=== PATIENT | male | born 1980 | race Caucasian/White ===

== ENCOUNTER 2017-10-25 15:32 | Emergency (ER) | payer BC ==
[2017-10-25] MEDS ORDERED: Sodium Chloride 0.9% 1,000 ML IV ONE (15:46)
[2017-10-25] MEDS ORDERED: Ketorolac 30 MG/ML SDV IVPUSH ONE (15:46)
[2017-10-25] MEDS ORDERED: Ondansetron 4 MG/2 ML SDV IVPUSH ONE (15:46)
--- NOTE | 2017-10-25 15:53 | EDM.PDOC ---
ED HPI GENERAL MEDICAL PROBLEM - General Chief Complaint: Abdominal Pain Stated Complaint: ABDOMINAL PAIN Time Seen by Provider: 10/25/17 15:46 Source of Information: Reports: Patient History Limitations: Reports: No Limitations - History of Present Illness INITIAL COMMENTS - FREE TEXT/NARRATIVE: HISTORY AND PHYSICAL: History of present illness: Patient is a 37-year-old male who presents to the emergency room with complaints of left upper quadrant/epigastric pain that radiates to the left flank. He states he had does have a decreased appetite and has not been eating as well as normal. States that nothing improves the pain and nothing makes it worse. Denies any vomiting, diarrhea or constipation. Denies any chest pain, shortness breath, fever or chills. Denies any dysuria or hematuria. Denies any alcohol or drug abuse. Review of systems: As per history of present illness and below otherwise all systems reviewed and negative. Past medical history: As per history of present illness and as reviewed below otherwise noncontributory. Surgical history: As per history of present illness and as reviewed below otherwise noncontributory. Social history: No reported history of drug or alcohol abuse. Family history: As per history of present illness and as reviewed below otherwise noncontributory. Physical exam: Gen.: Nontoxic-appearing 37-year-old male. Alert and oriented. Appears in no acute distress. HEENT: Atraumatic, normocephalic, pupils reactive, negative for conjunctival pallor or scleral icterus, mucous membranes moist, throat clear, neck supple, nontender, trachea midline. Lungs: Clear to auscultation, breath sounds equal bilaterally, chest nontender. Heart: S1S2, regular, negative for clicks, rubs, or JVD. Abdomen: Soft, obese, nondistended, mild tenderness to the epigastric area and left upper quadrant. Negative for masses or hepatosplenomegaly. Negative for costovertebral tenderness. Pelvis: Stable nontender. Genitourinary: Deferred. Rectal: Deferred. Extremities: Atraumatic, negative for cords or calf pain. Neurovascular unremarkable. Neuro: Awake, alert, oriented. Cranial nerves II through XII unremarkable. Cerebellum unremarkable. Motor and sensory unremarkable throughout. Exam nonfocal. Patient declines Toradol and Zofran at this time, stating "I'm okay". Inform the patient to let staff notes he did change his mind and wanted something for pain/nausea. Will do lab work and a CT of the abdomen pelvis. Patient is agreeable to plan of care. Labs and CT results were discussed with the patient. CT shows fatty infiltration of the liver along with elevated LFTs and his lab work. Did discuss decreasing/stopping alcohol abuse along with adjusting his diet. Voices understanding area and he will follow up with his primary care provider in the next couple weeks to have these reassessed. He denies any further questions or concerns at this time. Diagnostics: CBC, CMP, amylase, lipase, UA, CT abdomen and pelvis Therapeutics: IV fluid Impression: #1 Abdominal pain #2 Elevated LFTs Plan: 1. CT shows fatty infiltration of the liver along with elevated liver enzymes; please stop alcohol use and adopt a low fat diet. Please have your labs re- drawn in the next couple weeks with your primary care provider to have these re- evaluated. 2. Ultram has been prescribed for pain managment. Do not take while driving or needing to be functioning at work as it may cause drowsiness. 3. Please follow-up with your primary caregiver in the next 1-2 days. Return to the ED as needed and as discussed. Definitive disposition and diagnosis as appropriate pending reevaluation and review of above. Duration: Day(s): Location: Reports: Abdomen left upper quadrant Pain Score (Numeric/FACES): 5 - Related Data Allergies Allergy/AdvReac Type Severity Reaction Status Date / Time Penicillins Allergy Hives Verified 10/25/17 15:51 Sulfa (Sulfonamide Allergy Hives Verified 10/25/17 15:51 Antibiotics) Home Meds: Home Meds Losartan [Cozaar] 100 mg PO DAILY 10/25/17 [History] Omeprazole 40 mg PO DAILY 10/25/17 [History] ED ROS GENERAL - Review of Systems Review Of Systems: ROS reveals no pertinent complaints other than HPI. ED EXAM, GI/ABD - Physical Exam Exam: See Below (See dictation) Course - Vital Signs Last Recorded V/S: Last Vital Signs Temp 98.0 F 10/25/17 15:48 Pulse 106 H 10/25/17 15:48 Resp 18 10/25/17 15:48 BP 163/112 H 10/25/17 15:48 Pulse Ox 98 10/25/17 15:48 - Orders/Labs/Meds Orders: Active Orders 24 hr Category Date Time Status Abdomen Pelvis w Cont [CT] Stat Exams 10/25/17 15:46 Taken Labs: Laboratory Tests 10/25/17 10/25/17 10/25/17 Range/Units 15:53 15:53 16:50 WBC 8.20 (4.0-11.0) K/uL RBC 5.82 (4.50-5.90) M/uL Hgb 18.3 H (13.0-17.0) g/dL Hct 51.1 H (38.0-50.0) % MCV 87.8 (80.0-98.0) fL MCH 31.4 (27.0-32.0) pg MCHC 35.8 (31.0-37.0) g/dL RDW Std Deviation 40.6 (28.0-62.0) fl RDW Coeff of Paz 13 (11.0-15.0) % Plt Count 254 (150-400) K/uL MPV 10.30 (7.40-12.00) fL Neut % (Auto) 64.8 (48.0-80.0) % Lymph % (Auto) 25.7 (16.0-40.0) % Ray % (Auto) 6.6 (0.0-15.0) % Eos % (Auto) 2.4 (0.0-7.0) % Baso % (Auto) 0.5 (0.0-1.5) % Neut # (Auto) 5.3 (1.4-5.7) K/uL Lymph # (Auto) 2.1 (0.6-2.4) K/uL Ray # (Auto) 0.5 (0.0-0.8) K/uL Eos # (Auto) 0.2 (0.0-0.7) K/uL Baso # (Auto) 0.0 (0.0-0.1) K/uL Nucleated RBC % 0.0 /100WBC Nucleated RBCs # 0 K/uL Sodium 138 (136-146) mmol/L Potassium 3.9 (3.5-5.1) mmol/L Chloride 100 (98-110) mmol/L Carbon Dioxide 27 (21-31) mmol/L BUN 18 (6.0-23.0) mg/dL Creatinine 1.0 (0.6-1.5) mg/dL Est Cr Clr Drug Dosing 113.17 mL/min Estimated GFR (MDRD) > 60.0 ml/min Glucose 87 (60-110) mg/dL Calcium 10.0 (8.8-10.8) mg/dL Total Bilirubin 0.7 (0.1-1.5) mg/dL AST 60 H (5-40) IU/L ALT 158 H (8-54) IU/L Alkaline Phosphatase 86 (40-150) Total Protein 8.6 H (6.0-8.0) g/dL Albumin 4.8 (3.5-5.0) g/dL Globulin 3.8 H (2.0-3.5) g/dL Albumin/Globulin Ratio 1.3 (1.3-2.8) Amylase 69 (10-90) U/L Lipase 26 (7-80) U/L Urine Color YELLOW Urine Appearance CLEAR Urine pH 6.5 (5.0-8.0) Ur Specific Bird [place] 1.010 (1.001-1.035) Urine Protein NEGATIVE (NEGATIVE) mg/dL Urine Glucose (UA) NEGATIVE (NEGATIVE) mg/dL Urine Ketones NEGATIVE (NEGATIVE) mg/dL Urine Occult Blood NEGATIVE (NEGATIVE) Urine Nitrite NEGATIVE (NEGATIVE) Urine Bilirubin NEGATIVE (NEGATIVE) Urine Urobilinogen 0.2 (<2.0) EU/dL Ur Leukocyte Esterase NEGATIVE (NEGATIVE) Urine RBC 0-1 (0-2/HPF) Urine WBC 0-1 (0-5/HPF) Ur Epithelial Cells RARE (NONE-FEW) Urine Bacteria RARE (NEGATIVE) Meds: Medications Discontinued Medications Generic Name Dose Route Start Last Admin Trade Name Freq PRN Reason Stop Dose Admin Sodium Chloride 1,000 mls @ 999 mls/hr 10/25/17 15:46 10/25/17 16:54 Normal Saline IV 10/25/17 16:46 999 mls/hr STAT ONE Administration Ketorolac Tromethamine 30 mg 10/25/17 15:46 Toradol IVPUSH 10/25/17 15:47 ONETIME ONE Ondansetron HCl 4 mg 10/25/17 15:46 Zofran IVPUSH 10/25/17 15:47 ONETIME ONE Departure - Departure Time of Disposition: 17:48 Disposition: Home, Self-Care 01 Clinical Impression: Elevated liver enzymes Abdominal pain Qualifiers: Abdominal location: left upper quadrant Qualified Code(s): R10.12 - Left upper quadrant pain - Discharge Information Instructions: Abdominal Pain, Adult, [id number] Referrals: PCP,None [Primary Care Provider] - Forms: ED Department Discharge Additional Instructions: My general discharge The following information is given to patients seen in the emergency department who are being discharged to home. This information is to outline your options for follow-up care. We provide all patients seen in our emergency department with a follow-up referral. The need for follow-up, as well as the timing and circumstances, are variable depending upon the specifics of your emergency department visit. If you don't have a primary care physician on staff, we will provide you with a referral. We always advise you to contact your personal physician following an emergency department visit to inform them of the circumstance of the visit and for follow-up with them and/or the need for any referrals to a consulting specialist. The emergency department will also refer you to a specialist when appropriate. This referral assures that you have the opportunity for follow-up care with a specialist. All of these measure are taken in an effort to provide you with optimal care, which includes your follow-up. Under all circumstances we always encourage you to contact your private physician who remains a resource for coordinating your care. When calling for follow-up care, please make the office aware that this follow-up is from your recent emergency room visit. If for any reason you are refused follow-up, please contact the [facility] Emergency Department at and asked to speak to the emergency department charge nurse. [facility] Primary Care [address] [place] [id number] shows fatty infiltration of the liver along with elevated liver enzymes; please stop alcohol use and adopt a low fat diet. Please have your labs re- drawn in the next couple weeks with your primary care provider to have these re- evaluated. 2. Ultram has been prescribed for pain managment. Do not take while driving or needing to be functioning at work as it may cause drowsiness. 3. Please follow-up with your primary caregiver in the next 1-2 days. Return to the ED as needed and as discussed. - My Orders Last 24 Hours: My Active Orders 10/25/17 15:46 Abdomen Pelvis w Cont [CT] Stat - Assessment/Plan Last 24 Hours: My Active Orders 10/25/17 15:46 Abdomen Pelvis w Cont [CT] Stat
[2017-10-25 16:28] LABS: CHLORIDE,CL 100 mmol/L (98-110); SODIUM,NA 138 mmol/L (136-146)
--- NOTE | 2017-10-26 15:53 | CT ---
EXAM DATE: 10/25/17 PATIENT'S AGE: 37 Patient: MARTINEZ DOE Facility: [place] [place] Site . Site : [id number] Study: CT Abdomen/Pelvis [id number]/24/2018 4:55:08 PM Ordering Physician: Doctor Summers Final Report: INDICATION: Generalized abdominal pain. TECHNIQUE: CT abdomen and pelvis acquired with IV contrast. Coronal and sagittal reformats were obtained. Type and amount of IV contrast not provided. COMPARISON: None FINDINGS: Integration Software Developer CT images: Nonobstructive bowel gas pattern. Lower chest: Unremarkable. Liver: Fatty infiltration of the liver. No focal liver lesion. Spleen: Unremarkable. Pancreas: Unremarkable. Gallbladder and bile ducts: Unremarkable. Kidneys: Unremarkable. No kidney or ureteral stones and no hydronephrosis seen. Adrenal glands: Unremarkable. GI tract: Unremarkable. The appendix is normal in appearance and size. Vascular: Unremarkable. Lymph nodes: Unremarkable. Miscellaneous: Unremarkable. No pneumoperitoneum is seen. No significant ascites is noted. Tiny fat containing umbilical hernia defect. Pelvic Organs: Unremarkable. No free pelvic fluid. Bones: Bilateral L5 pars defects. Moderately severe degenerative disc disease at the L4-L5 and L5-S1 disc space levels. IMPRESSION: 1. Fatty infiltration of liver. 2. Normal appendix 3. L5 pars defects. Degenerative disc disease at L4-L5 and L5-S1, advanced for patient`s age. Dictated by Marcelo Tadeo MD @ 10/25/2017 5:22:38 PM Dictated by: Marcelo Tadeo MD @ 10/25/2017 17:22:44 ----- ADDENDUM ----- ADDENDUM: 1. IV Contrast: Isovue 370 100 mL Dictated by Marcelo Tadeo MD @ Oct 25 2017 5:34PM (Electronic Signature) Report Signed by Proxy. [facility] CENTERKelly
== END 2017-10-25 17:55 | disposition home or self-care (01) ==
LOC: MW.ED 15:32
DX: R10.12 Left upper quadrant pain (principal); R74.8 Abnormal levels of other serum enzymes; Z88.0 Allergy status to penicillin; Z88.2 Allergy status to sulfonamides; Z79.899 Other long term (current) drug therapy
CPT/HCPCS: 36415; 74177; 80053; 81001; 82150; 83690; 85025; 96360; 99284; J7040